=== PATIENT | female | born 1985 | race Caucasian/White ===

== ENCOUNTER 2018-08-06 07:14 | Emergency (ER) | payer MEDICAID ==
[~2018-08-06] VITALS: Ht 162.6 cm; Wt 66.0 kg
[2018-08-06] VITALS (10 sets, daily range): BP systolic 110–132; BP diastolic 52–88
[~2018-08-06 07:14] MED LIST: CLON-528 PO; COU1T PO; COU4T PO; DULO-31 PO; HYDR1TAB69 PO; PANT40TA39 PO
[2018-08-06 10:13] LABS: BASOPHILS # (AUTO) 0.1 X10'3 (0-0.2); BASOPHILS % (AUTO) 0.6 % (0-1); EOSINOPHILS # (AUTO) 0.3 X10'3 (0-0.9); HEMATOCRIT 40.6 % (35.0-45.0); HEMOGLOBIN 13.5 g/dl (12.0-16.0); LYMPHOCYTES # (AUTO) 3.1 X10'3 (1.1-4.8); MEAN CORPUSCULAR HEMOGLOBIN 27.6 PG (27.0-31.0); MEAN CORPUSCULAR HGB CONC 33.3 % (33.0-36.5); MEAN PLATELET VOLUME 7.9 FL (7.4-10.4); MONOCYTES # (AUTO) 0.8 X10'3 (0-0.9); MONOCYTES % (AUTO) 8.2 % (2-12); NEUTROPHILS # (AUTO) 5.2 X10'3 (1.8-7.7); NEUTROPHILS % (AUTO) 55.2 % (42-75); PLATELET COUNT 367 X10'3 (140-440); RED BLOOD COUNT 4.89 X10'6 (4.20-5.60); RED CELL DISTRIBUTION WIDTH 16.3 % (11.5-14.5); WHITE BLOOD COUNT 9.4 X10'3 (4.5-11.0)
[2018-08-06 10:26] LABS: ANION GAP 6 (8-16); BILIRUBIN,TOTAL 0.3 MG/DL (0.1-1.0); BLOOD UREA NITROGEN 10 MG/DL (7-18); BUN/CREATININE RATIO 12.3 (6.6-38.0); CALCIUM 8.7 MG/DL (8.5-10.1); CHLORIDE 103 MMOL/L (99-107); CREATININE 0.81 MG/DL (0.40-0.90); GLUCOSE 84 MG/DL (70-104); POTASSIUM 3.6 MMOL/L (3.5-5.1); SODIUM 137 MMOL/L (135-145); TOTAL CARBON DIOXIDE 28.2 MMOL/L (24-32); TOTAL PROTEIN 8.2 G/DL (6.4-8.2); eGFR 81 ML/MIN
[2018-08-06 10:27] LABS: ALANINE AMINOTRANSFERASE 22 U/L (12-78); ALBUMIN 3.6 G/DL (3.4-5.0); ALBUMIN/GLOBULIN RATIO 0.8 (1.1-1.5); ALKALINE PHOSPHATASE 80 IU/L (46-116); ASPARTATE AMINO TRANSFERASE 16 U/L (10-37)
[2018-08-06] MEDS ORDERED: fentaNYL /PF 50mcg/ml 5ml ampule ONE (10:37)
[2018-08-06] MEDS ORDERED: ketamine 50mg/5ml syringe ONE (10:37)
[2018-08-06] MEDS ORDERED: midazolam 2 mg/2 ml injection ONE (10:37)
[2018-08-06 10:38] LABS: HCG SERUM QL NEGATIVE
[2018-08-06] MEDS ORDERED: BUPIVAcaine/PF 2.5mg/ml (0.25%) 10ml vial ONE (10:41)
[2018-08-06] MEDS ORDERED: LIDOcaine 1% 30ml preserv. free vial ONE (10:41)
[2018-08-06] MEDS ORDERED: ringers solution, lacted 1,000 ML IV SCH (10:54)
[2018-08-06] MEDS ORDERED: morphine 4 MG/ML inj SYRINge IV PRN ×2 (10:55)
[2018-08-06] MEDS ORDERED: proCHLORperazine 10 MG/2 ml inj IV PRN (10:55)
[2018-08-06] MEDS ORDERED: ondansetron/PF 4mg/2ml inj IV PRN (10:55)
[2018-08-06] MEDS ORDERED: meperidine/PF 25mg/ml syringe IV PRN ×3 (10:55)
[2018-08-06] MEDS ORDERED: sevoflurane 250ml liquid IH ONE (10:57)
[2018-08-06] MEDS ORDERED: HYDR-3965 PO (13:16)
== END 2018-08-06 13:42 | disposition home or self-care (01) ==
LOC: ER 07:15
DX: S30.850A Superficial foreign body of lower back and pelvis, initial encounter (principal); J45.909 Unspecified asthma, uncomplicated; Z98.890 Other specified postprocedural states; Z88.8 Allergy status to other drugs, medicaments and biological substances; Z79.899 Other long term (current) drug therapy; Z79.01 Long term (current) use of anticoagulants; X58.XXXA Exposure to other specified factors, initial encounter; Y93.89 Activity, other specified; Y92.89 Other specified places as the place of occurrence of the external cause; Y99.9 Unspecified external cause status
CPT/HCPCS: 10120; 36415; 72170; 80053; 84703; 85025; 87070; 99285; A6449; J2250; J3010; J3490; A7000; J2175; J7120

== ENCOUNTER 2020-10-13 00:34 | Emergency (ER) | payer MEDICAID ==
[~2020-10-13] VITALS: Ht 162.6 cm; Wt 68.2 kg
[~2020-10-13 00:34] MED LIST changes: -COU1T PO; -COU4T PO; -HYDR1TAB69 PO; -PANT40TA39 PO
[2020-10-13 00:40] VITALS: BP 139/93
== END 2020-10-13 01:55 | disposition left against medical advice (07) ==
LOC: ER 00:35
DX: L29.9 Pruritus, unspecified (principal); Z53.21 Procedure and treatment not carried out due to patient leaving prior to being seen by health care provider

== ENCOUNTER 2020-10-17 17:16 | Emergency (ER) | payer MEDICAID ==
[~2020-10-17] VITALS: Ht 162.6 cm; Wt 93.1 kg
[2020-10-17 17:25] VITALS: BP 126/80
== END 2020-10-17 20:29 | disposition left against medical advice (07) ==
LOC: ER 17:18
DX: R60.9 Edema, unspecified (principal); Z53.21 Procedure and treatment not carried out due to patient leaving prior to being seen by health care provider

== ENCOUNTER 2021-08-21 16:01 | Emergency (ER) | payer MEDICAID ==
[~2021-08-21] VITALS: Ht 162.6 cm; Wt 68.2 kg
[2021-08-21 16:07] VITALS: BP 148/108
--- NOTE | 2021-08-21 16:15 | NUR ---
Patient states police were called an ex-boyfriend spent a night in group home. No call made to [employer] at this time.
[2021-08-21] MEDS ORDERED: ketorolac tromethamine 15mg/ml inj. IM ONE (20:05)
[2021-08-21] MEDS ORDERED: orphenadrine citrate 60mg/2ml inj. IM ONE (20:05)
[2021-08-21] MEDS ORDERED: ORPH100T2 PO (20:06)
[2021-08-21] MEDS ORDERED: IBUP-1984 PO (20:06)
== END 2021-08-21 20:30 | disposition home or self-care (01) ==
LOC: ER 16:04
DX: T71.9XXA Asphyxiation due to unspecified cause, initial encounter (principal); M54.2 Cervicalgia; J45.909 Unspecified asthma, uncomplicated; Z98.890 Other specified postprocedural states; Z88.8 Allergy status to other drugs, medicaments and biological substances; Z79.899 Other long term (current) drug therapy; Y08.89XA Assault by other specified means, initial encounter; Y93.89 Activity, other specified; Y92.89 Other specified places as the place of occurrence of the external cause; Y99.8 Other external cause status
CPT/HCPCS: 72040; 96372; 99283; J1885

== ENCOUNTER 2022-12-01 13:21 | Emergency (ER) | payer MEDICAID ==
[~2022-12-01] VITALS: Ht 162.6 cm; Wt 68.2 kg
[~2022-12-01 13:21] MED LIST changes: +ORPH100T2 PO
[2022-12-01 13:56] VITALS: BP 149/94
[2022-12-01] MEDS ORDERED: HYDROcodone/acetaminophen 5mg/325mg tablet PO ONE (15:55)
[2022-12-01] MEDS ORDERED: TETanus/Pertussis (Acell)/Diphther VAC/PF (Tdap-Adult) 0.5ml syringe IMVAC ONE (15:55)
[2022-12-01] MEDS ORDERED: LIDOcaine 1% 30ml preserv. free vial IJ ONE (15:55)
[2022-12-01] MEDS ORDERED: SULF1TAB49 PO (17:12)
[2022-12-01] MEDS ORDERED: HYDR-3965 PO (17:12)
== END 2022-12-01 17:30 | disposition home or self-care (01) ==
LOC: ER 13:22
DX: L03.012 Cellulitis of left finger (principal); J45.909 Unspecified asthma, uncomplicated; Z88.8 Allergy status to other drugs, medicaments and biological substances; Z98.890 Other specified postprocedural states; Z87.891 Personal history of nicotine dependence
CPT/HCPCS: 10060; 73140; 90471; 90715; 99283; A6449